=== PATIENT | male | born 2005 | race Hispanic/Latino ===

== ENCOUNTER 2024-09-06 01:15 | Emergency (ER) | payer SELFPAY ==
[~2024-09-06] VITALS: Ht 185.4 cm; Wt 71.7 kg
[2024-09-06 01:19] VITALS: PULSE 104; RESP 16; TEMP 98.6
[2024-09-06] MEDS: CEFTRIAXONE 1 GM VIAL IM ONE (01:47)
[2024-09-06] MEDS: BACITRACIN ZINC 0.9GM TP ONE (01:49)
[2024-09-06] MEDS ORDERED: IBUPROFEN 400 MG TAB ONE (01:49)
[2024-09-06] MEDS ORDERED: AUGMENTIN 500-1 EACH PO (01:51)
[2024-09-06] MEDS: IBUPROFEN 400 MG TAB PO STA (01:54)
[2024-09-06 03:25] VITALS: BP 138/79; PULSE 98; RESP 18; TEMP 98.6; O2SAT 98
== END 2024-09-06 03:25 | disposition home or self-care (01) ==
LOC: FSED 01:29
DX: M79.641 Pain in right hand (principal); S60.221A Contusion of right hand, initial encounter; S60.511A Abrasion of right hand, initial encounter; Y04.1XXA Assault by human bite, initial encounter; Y92.89 Other specified places as the place of occurrence of the external cause
CPT/HCPCS: 73130; 96372; 99283; J0696